=== PATIENT | female | born 1935 | race Caucasian/White ===

== ENCOUNTER 2024-09-02 15:57 | Inpatient (IN) | payer MEDICARE, BC ==
[~2024-09-02] VITALS: Ht 160 cm; Wt 53.5 kg
[2024-09-02 16:22] LABS: BASOPHILS # (AUTO) 0.1 K/UL (0.0-0.2); BASOPHILS % (AUTO) 1.3 % (0.0-2.0); EOSINOPHILS # (AUTO) 0.2 K/uL (0.0-0.7); EOSINOPHILS % (AUTO) 2.6 % (0.0-7.0); HEMATOCRIT 35.3 % (31.2-41.9); LYMPHOCYTES # (AUTO) 1.9 K/uL (0.8-4.8); LYMPHOCYTES % (AUTO) 22.9 % (20.5-51.5); MEAN CORPUSCULAR HEMOGLOBIN 32.9 uug (24.7-32.8); MEAN CORPUSCULAR HGB CONC 34 g/dL (32.3-35.6); MEAN CORPUSCULAR VOLUME 96.4 fL (75.5-95.3); MONOCYTES # (AUTO) 1.2 K/uL (0.1-1.30); MONOCYTES % (AUTO) 14.6 % (0.0-11.0); NEUTROPHILS # (AUTO) 4.9 K/uL (1.8-8.9); NEUTROPHILS % (AUTO) 58.6 % (38.5-71.5); PLATELET COUNT (AUTO) 205 K/uL (179-408); RED BLOOD CELL COUNT(AUTO) 3.66 MIL/uL (3.63-4.92); RED CELL DISTRIBUTION WIDTH 13.8 % (12.3-17.7); WHITE BLOOD COUNT (AUTO) 8.3 K/uL (3.8-11.8)
[2024-09-02] MEDS ORDERED: QUET25TA36 PO (16:29)
[2024-09-02] MEDS ORDERED: RIVA1PAT13 TOP (16:29)
[2024-09-02] MEDS ORDERED: MIDO2.5T PO (16:29)
[2024-09-02] MEDS ORDERED: ESCI20TA44 PO (16:29)
[2024-09-02] MEDS ORDERED: CARB1CAP7 PO (16:29)
[2024-09-02 16:39] LABS: ALANINE AMINOTRANSFERASE 10 U/L (14-59); ALKALINE PHOSPHATASE 48 U/L (50-136); ASPARTATE AMINOTRANSFERASE 19 U/L (15-37); BILIRUBIN,DIRECT 0.1 mg/dL (0.0-0.2); BILIRUBIN,TOTAL 0.5 mg/dL (0.2-1.0); NT-PRO BNP 2196 pg/mL (0-125); TOTAL PROTEIN, SERUM 7.2 g/dL (6.4-8.2)
[2024-09-02 16:55] LABS: MAGNESIUM 2.2 mg/dL (1.8-2.4); PHOSPHOROUS 3.3 mg/dL (2.5-4.9)
[2024-09-02] MEDS ORDERED: DOPamine IV DRIP 400 MG/250ML 250 ML IV PRN (17:30)
[2024-09-02] MEDS ORDERED: ATROPINE SULFATE 1 MG/10 ML DISP.SYRIN ONE (17:40)
[2024-09-02] MEDS: ATROPINE SULFATE 1 MG/10 ML DISP.SYRIN IV ONE (17:47)
[2024-09-02] MEDS ORDERED: DOPamine IV DRIP 400 MG/250ML 250 ML ONE (17:54)
[2024-09-02] MEDS: DOPamine IV DRIP 400 MG/250ML 250 ML IV PRN (18:08)
[2024-09-02] MEDS ORDERED: MUPI22OI2 TOP (18:11)
[2024-09-02] MEDS ORDERED: UBID10CA4 PO (18:11)
[2024-09-02] MEDS ORDERED: BIFI4CAP PO (18:11)
[2024-09-02] MEDS ORDERED: FAMO10TA41 PO (18:11)
[2024-09-02] MEDS ORDERED: SODI100010 PO (18:11)
[2024-09-02] MEDS ORDERED: BIOT25008 PO (18:11)
[2024-09-02] MEDS: ACETAMINOPHEN 650 MG/20.3 ML LIQUID UDC PO ONE (18:45)
[2024-09-02] MEDS: LORAZEPAM 0.5 MG TABLET PO ONE (18:47)
[2024-09-02] MEDS ORDERED: REMEDY ESSENTIAL ZINC PASTE 113 GM TP PRN (19:00)
[2024-09-02] MEDS: hydrALAZINE HCL 10 MG TABLET PO SCH (19:00)
[2024-09-02] MEDS ORDERED: ONDANSETRON 4 MG/2 ML VIAL IV PRN (19:00)
[2024-09-02] MEDS ORDERED: ATROPINE SULFATE 1 MG/10 ML DISP.SYRIN IV PRN (19:00)
[2024-09-02] MEDS ORDERED: MAGNESIUM HYDROXIDE 30 ML LIQUID UDC PO PRN (19:00)
[2024-09-02] MEDS ORDERED: hydrALAZINE HCL 50 MG TABLET ONE (19:44)
[2024-09-03] VITALS (56 sets, daily range): BP systolic 70–167; BP diastolic 27–121; TEMP 97.5–98.5; O2SAT 95–99
[2024-09-03] MEDS: QUETIAPINE FUMARATE 25 MG TABLET PO SCH (01:00)
[2024-09-03 05:11] LABS: BASOPHILS # (AUTO) 0.1 K/UL (0.0-0.2); BASOPHILS % (AUTO) 0.5 % (0.0-2.0); EOSINOPHILS # (AUTO) 0.1 K/uL (0.0-0.7); EOSINOPHILS % (AUTO) 0.5 % (0.0-7.0); HEMATOCRIT 37.5 % (31.2-41.9); HEMOGLOBIN 12.9 g/dL (10.9-14.3); LYMPHOCYTES # (AUTO) 1.5 K/uL (0.8-4.8); LYMPHOCYTES % (AUTO) 12.7 % (20.5-51.5); MEAN CORPUSCULAR HEMOGLOBIN 32.7 uug (24.7-32.8); MEAN CORPUSCULAR HGB CONC 34 g/dL (32.3-35.6); MEAN CORPUSCULAR VOLUME 94.9 fL (75.5-95.3); MONOCYTES # (AUTO) 1.6 K/uL (0.1-1.30); MONOCYTES % (AUTO) 12.9 % (0.0-11.0); NEUTROPHILS # (AUTO) 8.9 K/uL (1.8-8.9); NEUTROPHILS % (AUTO) 73.4 % (38.5-71.5); PLATELET COUNT (AUTO) 214 K/uL (179-408); RED BLOOD CELL COUNT(AUTO) 3.96 MIL/uL (3.63-4.92); RED CELL DISTRIBUTION WIDTH 13.4 % (12.3-17.7); WHITE BLOOD COUNT (AUTO) 12.2 K/uL (3.8-11.8)
[2024-09-03] MEDS ORDERED: ATROPINE SULFATE 1 MG/10 ML DISP.SYRIN IV PRN (05:15)
[2024-09-03 05:16] LABS: DIFFERENTIAL COMMENT 1
[2024-09-03 05:28] LABS: CALCIUM 9.7 mg/dL (8.5-10.1); CARBON DIOXIDE 27 mmol/L (21-32); CHLORIDE 104 mmol/L (98-107); CREATININE 0.7 mg/dL (0.6-1.3); GLUCOSE 117 mg/dL (74-106); MAGNESIUM 2.1 mg/dL (1.8-2.4); PHOSPHOROUS 2.6 mg/dL (2.5-4.9); POTASSIUM 3.8 mmol/L (3.5-5.1); SODIUM SERUM 139 mmol/L (136-145); UREA NITROGEN, BLOOD 25 mg/dL (7-18)
[2024-09-03] MEDS ORDERED: hydrALAZINE HCL 10 MG TABLET PO SCH (06:00)
[2024-09-03] MEDS: ENOXAPARIN SODIUM 40 MG/0.4 ML DISP.SYRIN SQ SCH (09:00)
[2024-09-03] MEDS: DOPamine IV DRIP 400 MG/250ML 250 ML IV PRN (12:25)
[2024-09-03] MEDS: hydrALAZINE HCL 50 MG TABLET PO SCH (15:10)
[2024-09-03 15:51] LABS: *BILIRUBIN,URIN NEGATIVE (NEGATIVE); *BLOOD, URINE 1+ (NEGATIVE); *CLARITY,URINE CLOUDY (CLEAR); *COLOR,URINE YELLOW (YELLOW); *KETONES,URINE TRACE (NEGATIVE); *PROTEIN,URINE 2+ (NEGATIVE); *UROBILINOGEN,URINE 0.2 E.U./dl (NORMAL); LEUKOCYTE ESTERASE ,URINE 3+ (NEGATIVE); NITRITE, URINE NEGATIVE (NEGATIVE); PH,URINE 5.5 (5.0-8.0); UGLUCOSE NEGATIVE (NEGATIVE)
[2024-09-03 16:10] LABS: BACTERIA,URINE MODERATE /HPF (NONE SEEN); SQUAMOUS EPITHELIAL CELL,UR FEW /HPF (NONE SEEN); WBC,URINE TNTC /HPF (0-3)
[2024-09-03] MEDS ORDERED: CEFTRIAXONE 1 G VIAL IM SCH (18:00)
[2024-09-03] MEDS ORDERED: CEFTRIAXONE 1 G VIAL IV SCH (18:00)
[2024-09-03] MEDS: IV NORMAL SALINE 500 ML IV ONE (18:01)
[2024-09-03] MEDS: CEFTRIAXONE 1 G in IV DEXTROSE 5% 50 ML IV SCH (18:02)
[2024-09-03] MEDS: IV NS 1000 ML 1,000 ML IV PRN (18:13)
[2024-09-04] VITALS (66 sets, daily range): BP systolic 80–168; BP diastolic 30–139; TEMP 97.2–99.1; O2SAT 94–100
[2024-09-04 07:39] LABS: BASOPHILS # (AUTO) 0.1 K/UL (0.0-0.2); BASOPHILS % (AUTO) 0.5 % (0.0-2.0); EOSINOPHILS % (AUTO) 0.2 % (0.0-7.0); HEMATOCRIT 32.4 % (31.2-41.9); HEMOGLOBIN 11.3 g/dL (10.9-14.3); LYMPHOCYTES # (AUTO) 1.5 K/uL (0.8-4.8); MEAN CORPUSCULAR HEMOGLOBIN 33.2 uug (24.7-32.8); MEAN CORPUSCULAR HGB CONC 35 g/dL (32.3-35.6); MEAN CORPUSCULAR VOLUME 95.3 fL (75.5-95.3); MONOCYTES # (AUTO) 1.5 K/uL (0.1-1.30); MONOCYTES % (AUTO) 13.4 % (0.0-11.0); NEUTROPHILS # (AUTO) 8.3 K/uL (1.8-8.9); NEUTROPHILS % (AUTO) 72.9 % (38.5-71.5); PLATELET COUNT (AUTO) 197 K/uL (179-408); RED CELL DISTRIBUTION WIDTH 13.5 % (12.3-17.7); WHITE BLOOD COUNT (AUTO) 11.4 K/uL (3.8-11.8)
[2024-09-04 07:40] LABS: DIFFERENTIAL COMMENT 1
[2024-09-04 07:46] LABS: CALCIUM 8.6 mg/dL (8.5-10.1); CARBON DIOXIDE 23 mmol/L (21-32); CHLORIDE 105 mmol/L (98-107); CREATININE 0.7 mg/dL (0.6-1.3); GLUCOSE 124 mg/dL (74-106); POTASSIUM 3.4 mmol/L (3.5-5.1); SODIUM SERUM 138 mmol/L (136-145); UREA NITROGEN, BLOOD 27 mg/dL (7-18)
[2024-09-04] MEDS: POTASSIUM CHLORIDE 50 ML IV SCH (08:25)
[2024-09-04] MEDS: ENSURE WITH FIBER 237 ML LIQUID (CHOCOLATE) PO SCH (09:00)
[2024-09-04] MEDS ORDERED: BUPIVACAINE PF 0.5% 30 ML VIAL ONE (09:55)
[2024-09-04] MEDS ORDERED: LIDOCAINE HCL 1% 20 ML VIAL ONE (09:55)
[2024-09-04] MEDS ORDERED: PROPOFOL 200 MG/20 ML BOTTLE ONE (10:50)
[2024-09-04] MEDS: NOREPINEPHRINE 8MG/NS 250ML 250 ML IV PRN (14:48)
[2024-09-04] MEDS: ACETAMINOPHEN 650 MG SUPP.RECT RC PRN (15:35)
[2024-09-04] MEDS ORDERED: MIDODRINE HCL 2.5 MG TABLET PO SCH (17:00)
[2024-09-04] MEDS: CARBIDOPA/LEVODOPA CR 50-200MG TABLET.SA PO SCH (18:00)
[2024-09-04] MEDS: QUETIAPINE FUMARATE 25 MG TABLET PO SCH (21:30)
[2024-09-05] VITALS (32 sets, daily range): BP systolic 93–144; BP diastolic 41–116; TEMP 97–98.2; O2SAT 94–98
[2024-09-05 04:59] LABS: BASOPHILS # (AUTO) 0.1 K/UL (0.0-0.2); EOSINOPHILS % (AUTO) 0.2 % (0.0-7.0); HEMATOCRIT 33.7 % (31.2-41.9); HEMOGLOBIN 11.3 g/dL (10.9-14.3); LYMPHOCYTES # (AUTO) 1.1 K/uL (0.8-4.8); LYMPHOCYTES % (AUTO) 8.5 % (20.5-51.5); MEAN CORPUSCULAR HEMOGLOBIN 32.4 uug (24.7-32.8); MEAN CORPUSCULAR HGB CONC 34 g/dL (32.3-35.6); MEAN CORPUSCULAR VOLUME 96.5 fL (75.5-95.3); MONOCYTES # (AUTO) 1.5 K/uL (0.1-1.30); MONOCYTES % (AUTO) 11.3 % (0.0-11.0); NEUTROPHILS # (AUTO) 10.6 K/uL (1.8-8.9); PLATELET COUNT (AUTO) 194 K/uL (179-408); RED BLOOD CELL COUNT(AUTO) 3.49 MIL/uL (3.63-4.92); RED CELL DISTRIBUTION WIDTH 13.7 % (12.3-17.7); WHITE BLOOD COUNT (AUTO) 13.4 K/uL (3.8-11.8)
[2024-09-05 05:09] LABS: CALCIUM 8.2 mg/dL (8.5-10.1); CARBON DIOXIDE 21 mmol/L (21-32); CHLORIDE 108 mmol/L (98-107); CREATININE 0.8 mg/dL (0.6-1.3); GLUCOSE 96 mg/dL (74-106); MAGNESIUM 1.9 mg/dL (1.8-2.4); PHOSPHOROUS 2.5 mg/dL (2.5-4.9); POTASSIUM 3.8 mmol/L (3.5-5.1); SODIUM SERUM 142 mmol/L (136-145); UREA NITROGEN, BLOOD 29 mg/dL (7-18)
[2024-09-05 05:21] LABS: DIFFERENTIAL COMMENT 1
[2024-09-05] MEDS: ESCITALOPRAM OXALATE 10 MG TABLET PO SCH (08:50)
[2024-09-05] MEDS: MIDODRINE HCL 5 MG TABLET PO SCH (08:52)
[2024-09-05] MEDS: RIVASTIGMINE 9.5 MG/ 24 HR 9.5 MG PATCH TD SCH (08:53)
[2024-09-05] MEDS: ENOXAPARIN SODIUM 40 MG/0.4 ML DISP.SYRIN SQ SCH (08:54)
[2024-09-05] MEDS ORDERED: MIDODRINE HCL 2.5 MG TABLET PO SCH (09:00)
[2024-09-05] MEDS: CEFTAZIDIME 1 G in IV DEXTROSE 5% 50 ML IV SCH (16:32)
[2024-09-05] MEDS: ACETAMINOPHEN 325 MG TABLET PO PRN (16:35)
[2024-09-06] VITALS (49 sets, daily range): BP systolic 82–185; BP diastolic 42–174; TEMP 98–98.6; O2SAT 91–99
[2024-09-06 05:33] LABS: BASOPHILS # (AUTO) 0.1 K/UL (0.0-0.2); BASOPHILS % (AUTO) 0.8 % (0.0-2.0); EOSINOPHILS # (AUTO) 0.1 K/uL (0.0-0.7); EOSINOPHILS % (AUTO) 1.1 % (0.0-7.0); HEMATOCRIT 29.9 % (31.2-41.9); HEMOGLOBIN 10.4 g/dL (10.9-14.3); LYMPHOCYTES # (AUTO) 1.5 K/uL (0.8-4.8); LYMPHOCYTES % (AUTO) 19.6 % (20.5-51.5); MEAN CORPUSCULAR HEMOGLOBIN 33.5 uug (24.7-32.8); MEAN CORPUSCULAR HGB CONC 35 g/dL (32.3-35.6); MEAN CORPUSCULAR VOLUME 96.8 fL (75.5-95.3); MONOCYTES # (AUTO) 1.3 K/uL (0.1-1.30); MONOCYTES % (AUTO) 16.3 % (0.0-11.0); NEUTROPHILS # (AUTO) 4.8 K/uL (1.8-8.9); NEUTROPHILS % (AUTO) 62.2 % (38.5-71.5); PLATELET COUNT (AUTO) 137 K/uL (179-408); RED BLOOD CELL COUNT(AUTO) 3.09 MIL/uL (3.63-4.92); RED CELL DISTRIBUTION WIDTH 13.8 % (12.3-17.7); WHITE BLOOD COUNT (AUTO) 7.8 K/uL (3.8-11.8)
[2024-09-06 05:59] LABS: CALCIUM 8.1 mg/dL (8.5-10.1); CARBON DIOXIDE 23 mmol/L (21-32); CHLORIDE 111 mmol/L (98-107); CREATININE 0.8 mg/dL (0.6-1.3); GLUCOSE 102 mg/dL (74-106); MAGNESIUM 2.1 mg/dL (1.8-2.4); POTASSIUM 3.8 mmol/L (3.5-5.1); SODIUM SERUM 143 mmol/L (136-145); UREA NITROGEN, BLOOD 32 mg/dL (7-18)
[2024-09-06] MEDS ORDERED: MIDODRINE HCL 5 MG TABLET PO SCH (17:00)
[2024-09-06] MEDS: NEUTRA PHOS PACKET PO ONE (17:36)
[2024-09-06 19:05] LABS: BAND % (MANUAL) 1 % (0-10); EOSINOPHILS % (MANUAL) 1 % (0-8); LYMPHOCYTES % (MANUAL) 22 % (20-40); MONOCYTES % (MANUAL) 12 % (2-10); NEUTROPHILS % (MANUAL) 64 % (42-75); PLATELET ESTIMATE DECREASED
[2024-09-06 19:06] LABS: ANISOCYTOSIS 1+
[2024-09-07] VITALS (37 sets, daily range): BP systolic 89–151; BP diastolic 44–125; TEMP 97–98; O2SAT 93–98
[2024-09-07] MEDS: QUETIAPINE FUMARATE 25 MG TABLET PO ONE (03:23)
[2024-09-07 06:09] LABS: CALCIUM 7.6 mg/dL (8.5-10.1); CARBON DIOXIDE 21 mmol/L (21-32); CHLORIDE 111 mmol/L (98-107); CREATININE 0.6 mg/dL (0.6-1.3); GLUCOSE 122 mg/dL (74-106); PHOSPHOROUS 1.7 mg/dL (2.5-4.9); POTASSIUM 3.7 mmol/L (3.5-5.1); SODIUM SERUM 141 mmol/L (136-145); UREA NITROGEN, BLOOD 23 mg/dL (7-18)
[2024-09-07] MEDS: MIDODRINE HCL 5 MG TABLET PO SCH (09:28)
[2024-09-07] MEDS ORDERED: MIRALAX 17 GM POWD.PACK PO PRN (11:30)
[2024-09-07] MEDS: NEUTRA PHOS PACKET PO ONE (19:26)
[2024-09-07] MEDS: NEUTRA PHOS PACKET ONE (19:26)
[2024-09-08] VITALS: BP 117/93; TEMP 98.1; O2SAT 97
[2024-09-08] MEDS: QUETIAPINE FUMARATE 25 MG TABLET PO ONE (01:18)
[2024-09-08 04:00] VITALS: BP 93/49; TEMP 97.9; O2SAT 96
[2024-09-08 08:00] VITALS: BP 97/73; TEMP 98.1; O2SAT 96
[2024-09-08 12:00] VITALS: BP 120/78; TEMP 97.5; O2SAT 96
[2024-09-08] MEDS: NEOMY/BACITRAC/POLYMI OINT 28.35 GM TUBE TOP SCH (14:45)
[2024-09-08 15:30] VITALS: BP 116/72; TEMP 97.5; O2SAT 96
== END 2024-09-08 15:55 | DRG 243 ==
LOC: ER 15:57 → CCU 21:40
PROC: 0JH606Z Insertion of Pacemaker, Dual Chamber into Chest Subcutaneous Tissue and Fascia, Open Approach (ICD-10-PCS; principal; 2024-09-04)
PROC: 02H63JZ Insertion of Pacemaker Lead into Right Atrium, Percutaneous Approach (ICD-10-PCS; 2024-09-04)
PROC: 02HK3JZ Insertion of Pacemaker Lead into Right Ventricle, Percutaneous Approach (ICD-10-PCS; 2024-09-04)
PROC: 05HB33Z Insertion of Infusion Device into Right Basilic Vein, Percutaneous Approach (ICD-10-PCS; 2024-09-04)
DX: I44.1 Atrioventricular block, second degree (principal); F02.84 Dementia in other diseases classified elsewhere, unspecified severity, with anxiety; N39.0 Urinary tract infection, site not specified; E88.09 Other disorders of plasma-protein metabolism, not elsewhere classified; B96.5 Pseudomonas (aeruginosa) (mallei) (pseudomallei) as the cause of diseases classified elsewhere; G90.9 Disorder of the autonomic nervous system, unspecified; I95.1 Orthostatic hypotension; G20.A1 Parkinson's disease without dyskinesia, without mention of fluctuations; I44.7 Left bundle-branch block, unspecified; Z79.899 Other long term (current) drug therapy; Z88.5 Allergy status to narcotic agent; Z88.8 Allergy status to other drugs, medicaments and biological substances; Z91.041 Radiographic dye allergy status; Z99.3 Dependence on wheelchair; R54 Age-related physical debility; R79.89 Other specified abnormal findings of blood chemistry; Z87.440 Personal history of urinary (tract) infections
CPT/HCPCS: 36415; 71045; 83735; 84100; 84443; 84484; 85025; 85730; 87077; 87086; 93005; 93307; A4606; A4649; A4663; C1785; G0378; J0461; J0690; J0696; J0713; J1650; J2405; J3480; J3490; J7040; J7070